=== PATIENT | female | born 1955 | race Caucasian/White ===

== ENCOUNTER 2023-03-08 05:42 | Emergency (ER) | payer MEDICARE, OTHER ==
[~2023-03-08] VITALS: Ht 175.3 cm; Wt 90.7 kg
[2023-03-08 06:07] LABS: HEMOGLOBIN 14.4 g/dL (12.0-18.0); MCH 29.4 (27-36)
[2023-03-08 06:10] LABS: BASOPHILS 0.4 % (0-2); EOSINOPHILS 0.7 % (0-6); HEMATOCRIT 43.1 % (35.0-50.0); LYMPHOCYTES 13.6 % (24-44); MCHC 33.4 g/dl (30-36); MONOCYTES 3.5 % (0-12); NEUTROPHILS 81.8 % (39-80); PLATELET COUNT 329 K/uL (140-440); RDW 13.5 (10.5-15.0)
[2023-03-08 06:31] LABS: ALBUMIN 4.4 g/dL (3.4-5.0); ALBUMIN/GLOBULIN RATIO 1.19 (1.1-2.4); BILIRUBIN, TOTAL 0.6 ng/dL (0.2-1.0); BUN/CREATININE RATIO 23.17 (6.0-28.6); CALCIUM 9.7 mg/dL (8.5-10.1); CREATININE, SERUM 0.82 mg/dL (0.55-1.02); MAGNESIUM 1.9 mg/dL (1.8-2.4); PROTEIN, TOTAL 8.1 g/dL (6.4-8.2)
[2023-03-08 06:49] LABS: INFLUENZA B NAA NEGATIVE (NEGATIVE); RESPIRATORY SYNCYTIAL VIR NAA NEGATIVE (NEGATIVE)
[2023-03-08] MEDS ORDERED: ONDANSETRON ODT8 MG PO (06:51)
[2023-03-08 10:28] VITALS: BP 174/97
== END 2023-03-08 10:28 | disposition home or self-care (01) ==
LOC: ED 05:42
PROVIDERS: Emergency Medicine
DX: A08.4 Viral intestinal infection, unspecified (principal); Z20.822 Contact with and (suspected) exposure to COVID-19
CPT/HCPCS: 36415; 80053; 83690; 83735; 85025; 85060; 87502; 96361; 96374; 96375; 96376; 99284-25; A9270; J1790; J2405; J2765; J7030; J7040; U0002